=== PATIENT | female | born 1960 ===

== ENCOUNTER 2016-12-14 17:29 | Outpatient (CLI) | payer SELFPAY | END 2016-12-14 17:30 | disposition EMS.NT | LOC: EMS 17:29 | PROVIDERS: ATTEND Surgery | DX: S61.212A Laceration without foreign body of right middle finger without damage to nail, initial encounter (principal); S61.210A Laceration without foreign body of right index finger without damage to nail, initial encounter; S61.214A Laceration without foreign body of right ring finger without damage to nail, initial encounter; W31.2XXA Contact with powered woodworking and forming machines, initial encounter; Y92.009 Unspecified place in unspecified non-institutional (private) residence as the place of occurrence of the external cause ==